=== PATIENT | female | born 1975 | race Two or more races ===

== ENCOUNTER 2016-05-18 12:52 | Emergency (ER) | payer MEDICAID, OTHER ==
[~2016-05-18] VITALS: Ht 162.6 cm; Wt 84.0 kg
[2016-05-18 13:04] VITALS: BP 101/70
[2016-05-18] MEDS ORDERED: IBUPROFEN 600 MG TAB PO ONE (13:15)
[2016-05-18] MEDS ORDERED: ACETAMINOPHEN 500 MG TAB PO ONE (14:11)
[2016-05-18] MEDS ORDERED: cefTRIAXone SOD 1,000 MG VL IM ONE (14:15)
[2016-05-18] MEDS ORDERED: ACETAMINOPHEN 650 mg PER 20 mL UD PO ONE (14:15)
== END 2016-05-18 15:10 | disposition home or self-care (01) ==
LOC: ER 12:52
DX: N61.0 Mastitis without abscess (principal)
CPT/HCPCS: 96372; 99283; J0696

== ENCOUNTER 2016-10-28 20:23 | Emergency (ER) | payer MEDICAID ==
[~2016-10-28] VITALS: Ht 162.6 cm; Wt 77.6 kg
[2016-10-28 20:40] VITALS: BP 106/79
[2016-10-28 21:11] LABS: Urine Bilirubin Negative (Negative); Urine Blood Negative /uL (Negative); Urine Color Yellow (Yellow); Urine Glucose Normal (Normal); Urine Mucus FEW (None Seen); Urine Nitrite Negative (Negative); Urine RBC <1 /hpf (0 - 4); Urine Squamous Epithelial Cell FEW /hpf (<5); Urine Urobilinogen Normal (Negative)
[2016-10-28 21:12] LABS: Urine Ketone 2+ (Negative)
[2016-10-28 21:26] LABS: Basophils # (auto) 0 uL; Basophils % (auto) 0.4 % (0.0-2.0); CONDITION Y; Eosinophils # (auto) 0 uL; Eosinophils % (auto) 0.1 % (0.0-7.0); Hemoglobin 12.7 g/dL (12.2-16.2); Lymphocytes # (auto) 1.3 uL; Mean Corpuscular Hemoglobin 28.1 pg (28.0-32.0); Mean Corpuscular Hgb Conc. 33.4 g/dL (32.0-36.0); Mean Platelet Volume 9.4 fL (7.4-10.4); Monocytes # (auto) 0.4 uL; Monocytes % (auto) 4.3 % (0.0-12.0); Neutrophils # (auto) 8.2 uL; Neutrophils % (auto) 82.2 % (37.0-80.0); Platelet Count (auto) 345 10^3/uL (140-450); Red Cell Distribution Width 15.5 % (11.6-16.0)
[2016-10-28 21:41] LABS: Albumin 3.6 g/dL (3.4-5.0); BUN/Creatinine Ratio 25.7; Calcium 8.9 mg/dL (8.5-10.1)
[2016-10-28 21:43] LABS: Bilirubin, Total 0.9 mg/dL (0.2-1.0); Total Protein 7.7 g/dL (6.4-8.2)
== END 2016-10-29 | disposition left against medical advice (07) ==
LOC: ER 20:40
DX: R10.13 Epigastric pain (principal); M54.9 Dorsalgia, unspecified; R11.2 Nausea with vomiting, unspecified; R19.7 Diarrhea, unspecified; Z53.21 Procedure and treatment not carried out due to patient leaving prior to being seen by health care provider
CPT/HCPCS: 36415; 76705; 80053; 81001; 82150; 83690; 84702; 85025

== ENCOUNTER 2020-07-14 23:06 | Inpatient (IN) | payer SELFPAY ==
[~2020-07-14] VITALS: Ht 162.6 cm; Wt 82.1 kg
[2020-07-15] MEDS ORDERED: HYDROmorphone HCL 2 MG/ML VL IV ONE (01:45)
[2020-07-15] MEDS ORDERED: SODIUM CHLORIDE 0.9% 500 ML IVB ONE (01:45)
[2020-07-15] MEDS ORDERED: ONDANSETRON HCL 4 MG/2 ML VIAL IV ONE (01:45)
[2020-07-15 02:28] LABS: Basophils # (auto) 0 10 ^3/uL (0-0.2); Basophils % (auto) 0.3 % (0.0-2.0); Eosinophils # (auto) 0 10 ^3/uL (0-0.8); Eosinophils % (auto) 0.1 % (0.0-7.0); Hematocrit 38.5 % (36.0-46.0); Hemoglobin 12.9 g/dL (12.2-16.2); Lymphocytes # (auto) 0.9 10 ^3/uL (0.4-5.4); Lymphocytes % (auto) 14.4 % (10.0-50.0); Mean Corpuscular Hemoglobin 27.6 pg (28.0-32.0); Mean Corpuscular Hgb Conc. 33.4 g/dL (32.0-36.0); Mean Corpuscular Volume 82.6 fL (80.0-100.0); Monocytes # (auto) 0.3 10 ^3/uL (0-1.3); Monocytes % (auto) 5.5 % (0.0-12.0); Neutrophils % (auto) 79.7 % (37.0-80.0); Platelet Count (auto) 203 10^3/uL (140-450); Red Blood Cells 4.66 10^6/uL (4.0-5.20); Red Cell Distribution Width 15.3 % (11.8-14.3); White Blood Cell 6.2 10^3/uL (4.4-10.8)
[2020-07-15 02:32] LABS: Urine Bacteria FEW /hpf (None Seen); Urine Blood 1+ /uL (Negative); Urine Mucus FEW (None Seen); Urine WBC 8 /hpf (0 - 5)
[2020-07-15 02:43] LABS: INR 1.03 (0.9-1.15); Partial Thromboplastin Time 27.3 sec (23.0-31.2)
[2020-07-15 02:45] LABS: Albumin 3.7 g/dL (3.4-5.0); BUN/Creatinine Ratio 25.8; Calcium 8.3 mg/dL (8.5-10.1); Magnesium 2.2 mg/dL (1.6-2.6); Potassium 3.7 mmol/L (3.5-5.1)
[2020-07-15 02:47] LABS: Bilirubin, Total 0.7 mg/dL (0.2-1.0); Total Protein 7.5 g/dL (6.4-8.2)
[2020-07-15] MEDS ORDERED: PIPERACILLIN-TAZOB 3.375GM 100 ML IV ONE (05:15)
[2020-07-15] MEDS ORDERED: HYDROcodone-ACET 5/325MG TAB PO PRN (07:00)
[2020-07-15] MEDS ORDERED: NITROGLYCERIN 0.4 MG SL TAB SL PRN (07:00)
[2020-07-15] MEDS ORDERED: ACETAMINOPHEN 325 MG TAB PO PRN (07:00)
[2020-07-15] MEDS ORDERED: HYDROmorphone HCL 2 MG/ML VL IV PRN (07:00)
[2020-07-15] MEDS ORDERED: ONDANSETRON HCL 4 MG/2 ML VIAL IV PRN (07:00)
[2020-07-15] MEDS ORDERED: MORPHINE SULF INJ 2 MG/ML SYRINGE 1ML IV PRN (07:00)
[2020-07-15] MEDS: SODIUM CHLORIDE 0.9% 1,000 ML IV SCH (08:14)
[2020-07-15] MEDS: cefTRIAXone 1GM/50ML D5W 50 ML IV SCH (08:14)
[2020-07-15] MEDS: FAMOTIDINE (10MG/ML) 2ML VL IV SCH ×2 (08:15→22:07)
[2020-07-15] MEDS: ENOXAPARIN SOD 40 MG/0.4 ML SYRINGE SC SCH (08:15)
[2020-07-15 10:03] LABS: Basophils # (auto) 0 10 ^3/uL (0-0.2); Basophils % (auto) 0.3 % (0.0-2.0); Eosinophils # (auto) 0 10 ^3/uL (0-0.8); Eosinophils % (auto) 0.3 % (0.0-7.0); Hematocrit 35.2 % (36.0-46.0); Lymphocytes # (auto) 1.1 10 ^3/uL (0.4-5.4); Lymphocytes % (auto) 17.5 % (10.0-50.0); Mean Corpuscular Hemoglobin 28.1 pg (28.0-32.0); Mean Corpuscular Volume 82.7 fL (80.0-100.0); Monocytes # (auto) 0.4 10 ^3/uL (0-1.3); Monocytes % (auto) 5.5 % (0.0-12.0); Neutrophils # (auto) 4.9 10 ^3/uL (1.6-8.6); Neutrophils % (auto) 76.4 % (37.0-80.0); Platelet Count (auto) 188 10^3/uL (140-450); Red Blood Cells 4.26 10^6/uL (4.0-5.20); Red Cell Distribution Width 15.1 % (11.8-14.3); White Blood Cell 6.4 10^3/uL (4.4-10.8)
[2020-07-15 10:23] LABS: Albumin 3.3 g/dL (3.4-5.0); Calcium 8.2 mg/dL (8.5-10.1); Potassium 3.8 mmol/L (3.5-5.1)
[2020-07-15 10:26] LABS: BUN/Creatinine Ratio 20.3; Bilirubin, Total 0.8 mg/dL (0.2-1.0); Total Protein 6.6 g/dL (6.4-8.2)
[2020-07-15 13:00] VITALS: BP 111/73
[2020-07-15] MEDS: metroNIDAZOLE 500MG/100ML 100 ML IV SCH ×2 (13:54→22:07)
[2020-07-15 17:00] VITALS: BP 113/72
[2020-07-15 22:00] VITALS: BP 102/94
[2020-07-16 05:12] VITALS: BP 97/67
[2020-07-16] MEDS: SODIUM CHLORIDE 0.9% 1,000 ML IV SCH (05:17)
[2020-07-16] MEDS: metroNIDAZOLE 500MG/100ML 100 ML IV SCH ×3 (05:17→22:08)
[2020-07-16] MEDS: D5W/SOD CHLO 0.9% 1,000 ML IV SCH ×2 (06:19→23:02)
[2020-07-16 07:18] LABS: Basophils # (auto) 0 10 ^3/uL (0-0.2); Basophils % (auto) 0.4 % (0.0-2.0); Eosinophils # (auto) 0 10 ^3/uL (0-0.8); Eosinophils % (auto) 0.3 % (0.0-7.0); Hematocrit 36.8 % (36.0-46.0); Hemoglobin 12.4 g/dL (12.2-16.2); Lymphocytes # (auto) 0.9 10 ^3/uL (0.4-5.4); Lymphocytes % (auto) 17.7 % (10.0-50.0); Mean Corpuscular Hemoglobin 27.8 pg (28.0-32.0); Mean Corpuscular Hgb Conc. 33.7 g/dL (32.0-36.0); Mean Corpuscular Volume 82.5 fL (80.0-100.0); Monocytes # (auto) 0.3 10 ^3/uL (0-1.3); Monocytes % (auto) 6.5 % (0.0-12.0); Neutrophils # (auto) 3.9 10 ^3/uL (1.6-8.6); Neutrophils % (auto) 75.1 % (37.0-80.0); Nucleated Red Blood Cells % 0.1 %; Platelet Count (auto) 178 10^3/uL (140-450); Red Blood Cells 4.46 10^6/uL (4.0-5.20); Red Cell Distribution Width 14.9 % (11.8-14.3); White Blood Cell 5.2 10^3/uL (4.4-10.8)
[2020-07-16 07:23] LABS: Potassium 3.5 mmol/L (3.5-5.1)
[2020-07-16 07:26] LABS: Albumin 3.2 g/dL (3.4-5.0); BUN/Creatinine Ratio 24.6; Calcium 7.8 mg/dL (8.5-10.1)
[2020-07-16 07:29] LABS: Bilirubin, Total 0.9 mg/dL (0.2-1.0); Total Protein 6.8 g/dL (6.4-8.2)
[2020-07-16 09:00] VITALS: BP 95/65
[2020-07-16] MEDS: cefTRIAXone 1GM/50ML D5W 50 ML IV SCH (10:23)
[2020-07-16] MEDS: ENOXAPARIN SOD 40 MG/0.4 ML SYRINGE SC SCH (10:23)
[2020-07-16] MEDS: FAMOTIDINE (10MG/ML) 2ML VL IV SCH ×2 (10:23→22:08)
[2020-07-16 13:00] VITALS: BP 97/73
[2020-07-16 17:00] VITALS: BP 96/67
[2020-07-16 21:36] VITALS: BP 100/66
[2020-07-17 05:00] VITALS: BP 88/66
[2020-07-17] MEDS: metroNIDAZOLE 500MG/100ML 100 ML IV SCH ×2 (05:38→14:00)
[2020-07-17 05:39] VITALS: BP 99/59
[2020-07-17 09:00] VITALS: BP 92/59
[2020-07-17] MEDS: ENOXAPARIN SOD 40 MG/0.4 ML SYRINGE SC SCH (09:18)
[2020-07-17] MEDS: cefTRIAXone 1GM/50ML D5W 50 ML IV SCH (09:18)
[2020-07-17] MEDS: FAMOTIDINE (10MG/ML) 2ML VL IV SCH (09:19)
[2020-07-17 13:00] VITALS: BP 105/69
[2020-07-17] MEDS: D5W/SOD CHLO 0.9% 1,000 ML IV SCH (15:35)
[2020-07-17 15:49] VITALS: BP 105/69
== END 2020-07-17 17:20 | disposition home or self-care (01) | DRG 444 ==
LOC: ER 23:06 → TELE 07-15 06:59 → TELE-EAST 07-15 11:16 → EAST 07-15 17:11
PROVIDERS: ADMIT Nurse Practitioner Family; ATTEND Internal Medicine
DX: K81.0 Acute cholecystitis (principal); U07.1 COVID-19; N39.0 Urinary tract infection, site not specified; R00.1 Bradycardia, unspecified; Z82.49 Family history of ischemic heart disease and other diseases of the circulatory system; E66.9 Obesity, unspecified; Z68.31 Body mass index [BMI] 31.0-31.9, adult
CPT/HCPCS: 36415; 71045; 76705; 80053; 81001; 82150; 82962; 83690; 83735; 84443; 85025; 85610; 85730; 87426; 93005; 96361; 96365; 96366; 96368; 96372; 96375; G0378; J0696; J2405; J2543; J3490; J7042

== ENCOUNTER 2020-11-09 13:15 | Emergency (ER) | payer OTHER ==
[~2020-11-09] VITALS: Ht 162.6 cm; Wt 77.1 kg
[2020-11-09] MEDS ORDERED: SODIUM CHLORIDE 0.9% 1,000 ML IVB ONE (14:30)
[2020-11-09] MEDS ORDERED: ONDANSETRON HCL 4 MG/2 ML VIAL IV ONE (14:30)
[2020-11-09 14:44] LABS: Basophils # (auto) 0.1 10 ^3/uL (0-0.2); Basophils % (auto) 0.7 % (0.0-2.0); Eosinophils # (auto) 0 10 ^3/uL (0-0.8); Eosinophils % (auto) 0.4 % (0.0-7.0); Hematocrit 30.7 % (36.0-46.0); Hemoglobin 10.3 g/dL (12.2-16.2); Lymphocytes # (auto) 0.7 10 ^3/uL (0.4-5.4); Lymphocytes % (auto) 7.6 % (10.0-50.0); Mean Corpuscular Hemoglobin 27.7 pg (28.0-32.0); Mean Corpuscular Hgb Conc. 33.5 g/dL (32.0-36.0); Mean Corpuscular Volume 82.8 fL (80.0-100.0); Monocytes # (auto) 0.5 10 ^3/uL (0-1.3); Monocytes % (auto) 5.5 % (0.0-12.0); Neutrophils # (auto) 7.8 10 ^3/uL (1.6-8.6); Neutrophils % (auto) 85.8 % (37.0-80.0); Nucleated Red Blood Cells % 0.2 %; Red Cell Distribution Width 14.2 % (11.8-14.3); White Blood Cell 9.1 10^3/uL (4.4-10.8)
[2020-11-09 14:52] LABS: Albumin 2.5 g/dL (3.4-5.0); Calcium 8.3 mg/dL (8.5-10.1); Magnesium 2.3 mg/dL (1.6-2.6); Potassium 4.1 mmol/L (3.5-5.1)
[2020-11-09 14:54] LABS: INR 1.16 (0.9-1.15); Partial Thromboplastin Time 25.4 sec (23.6-33.0)
[2020-11-09 14:58] LABS: BUN/Creatinine Ratio 21.3; Bilirubin, Total 0.7 mg/dL (0.2-1.0); Total Protein 6.5 g/dL (6.4-8.2)
[2020-11-09 16:09] LABS: Urine Bacteria FEW /hpf (None Seen); Urine Blood Negative /uL (Negative); Urine Mucus FEW (None Seen); Urine Specific Gravity 1.021 (1.001-1.035); Urine WBC 1 /hpf (0 - 5)
[2020-11-09] MEDS ORDERED: cefTRIAXone 1GM/50ML D5W 50 ML IV ONE (16:30)
[2020-11-09 20:12] VITALS: BP 104/65
== END 2020-11-09 20:20 | disposition home or self-care (01) ==
LOC: EDBD 13:15 → ER 13:15
DX: N39.0 Urinary tract infection, site not specified (principal); R10.11 Right upper quadrant pain; D64.9 Anemia, unspecified; R79.89 Other specified abnormal findings of blood chemistry; Z90.49 Acquired absence of other specified parts of digestive tract; Z98.890 Other specified postprocedural states
CPT/HCPCS: 36415; 71045; 74176; 80053; 81001; 82150; 83690; 83735; 85025; 85610; 85730; 96361; 96365; 96375; 99285; J0696; J2405